=== PATIENT | male | born 2000 | race Caucasian/White ===

== ENCOUNTER 2024-04-10 19:46 | Emergency (ER) | payer SELFPAY ==
[~2024-04-10] VITALS: Ht 165.1 cm; Wt 52.2 kg
[2024-04-10 20:03] VITALS: BP 131/102; PULSE 128; RESP 20; TEMP 98.7; O2SAT 99
[2024-04-10 20:37] LABS: BASOPHILS % (AUTO) 0.2 % (0.0-2.0); HEMATOCRIT 48.1 % (36-52); HEMOGLOBIN 17.1 g/dL (12.0-18.0); LYMPHOCYTES # (AUTO) 0.7 K/uL (2.0-11.5); LYMPHOCYTES % (AUTO) 4.5 % (20.5-51.1); MEAN CORPUSCULAR HEMOGLOBIN 31 pg (27-31); MEAN CORPUSCULAR HGB CONC 36 g/dL (33-37); MEAN CORPUSCULAR VOLUME 85.8 fL (80-94); MONOCYTES # (AUTO) 0.4 K/uL (0.8-1.0); MONOCYTES % (AUTO) 2.7 % (1.7-9.3); NEUTROPHILS # (AUTO) 14.6 K/uL (1.8-7.7); NEUTROPHILS % (AUTO) 92.6 % (42.2-75.2); PLATELET COUNT (AUTO) 401 K/uL (140-450); RED BLOOD CELL COUNT(AUTO) 5.61 MIL/uL (4.20-6.10); RED CELL DISTRIBUTION WIDTH 13.4 % (11.6-13.7); WHITE BLOOD COUNT (AUTO) 15.8 K/uL (4.8-10.8)
[2024-04-10 20:52] LABS: ANION GAP 23.2 (8-16); CALCIUM 10.1 mg/dL (8.5-10.1); POTASSIUM 3.2 mmol/L (3.5-5.1)
[2024-04-10 20:59] LABS: ALBUMIN 5.1 g/dL (3.4-5.0); BILIRUBIN,DIRECT 0.5 mg/dL (0.0-0.3); TOTAL BILIRUBIN 2.1 mg/dL (0.0-1.0); TOTAL PROTEIN, SERUM 9.3 g/dL (6.4-8.2)
[2024-04-10] MEDS: diphenhydrAMINE 50 MG/ML VIAL IVP ONE (21:00)
[2024-04-10] MEDS: METOCLOPRAMIDE 10 MG/2 ML INJ VIAL IVP ONE (21:01)
[2024-04-10] MEDS: KETOROLAC 30 MG/ML VIAL IVP ONE (21:02)
[2024-04-10] MEDS: NACL 0.9% 1,000 ML IV SCH (21:30)
[2024-04-10] MEDS: NACL 0.9% 1,000 ML IV ONE (21:55)
[2024-04-11] MEDS ORDERED: ONDA-188 SL (00:08)
[2024-04-11] MEDS ORDERED: FAMO-90 PO (00:08)
[2024-04-11 00:20] VITALS: BP 142/89; PULSE 100; RESP 18; TEMP 98; O2SAT 100
[2024-04-11 00:41] LABS: APPEARANCE,URINE CLEAR (CLEAR); BILIRUBIN,URINE NEGATIVE (NEGATIVE); BLOOD, URINE NEGATIVE (NEGATIVE); COLOR,URINE YELLOW (YELLOW); LEUKOCYTE ESTERASE ,URINE NEGATIVE (NEGATIVE); NITRITE, URINE NEGATIVE (NEGATIVE); PH,URINE 6.5 (5.0-9.0); PROTEIN,URINE NEGATIVE (NEGATIVE); UGLUCOSE NEGATIVE (NEGATIVE)
[2024-04-11 00:59] LABS: AMPHETAMINE, URINE NEGATIVE ng/ml (NEG <=1000); BARBITURATE, URINE NEGATIVE ng/ml (NEG <=200); BENZODIAZEPINE, URINE NEGATIVE ng/mL (NEG <=200); CANNABINOID, URINE NEGATIVE ng/mL (NEG <=50); COCAINE, URINE NEGATIVE ng/mL (NEG <=300); OPIATE, URINE NEGATIVE ng/mL (NEG <=2000); PHENCYCLIDINE SCREEN,URINE NEGATIVE ng/mL (NEG <=25)
== END 2024-04-11 00:20 | disposition home or self-care (01) ==
LOC: MED 19:46
DX: K29.70 Gastritis, unspecified, without bleeding (principal); F12.90 Cannabis use, unspecified, uncomplicated
CPT/HCPCS: 36415; 80048; 80076; 80305; 81003; 83690; 85025; 93005; 96361; 96374; 96375; 99284; J1200; J1885; J2765; J7030

== ENCOUNTER 2024-05-15 18:49 | Emergency (ER) | payer SELFPAY ==
[~2024-05-15] VITALS: Ht 167.6 cm; Wt 45.0 kg
[~2024-05-15 18:49] MED LIST: FAMO-90 PO; ONDA-188 SL
[2024-05-15 19:01] VITALS: BP 147/73; PULSE 115; RESP 17; TEMP 98.6; O2SAT 100
[2024-05-15 19:28] LABS: BASOPHILS # (AUTO) 0.1 K/uL (0.00-0.22); BASOPHILS % (AUTO) 0.4 % (0.0-2.0); HEMATOCRIT 45.8 % (36-52); HEMOGLOBIN 15.8 g/dL (12.0-18.0); LYMPHOCYTES # (AUTO) 0.8 K/uL (2.0-11.5); LYMPHOCYTES % (AUTO) 3.6 % (20.5-51.1); MEAN CORPUSCULAR HEMOGLOBIN 30 pg (27-31); MEAN CORPUSCULAR HGB CONC 34 g/dL (33-37); MEAN CORPUSCULAR VOLUME 87.3 fL (80-94); MONOCYTES # (AUTO) 0.6 K/uL (0.8-1.0); MONOCYTES % (AUTO) 2.6 % (1.7-9.3); NEUTROPHILS # (AUTO) 20.3 K/uL (1.8-7.7); NEUTROPHILS % (AUTO) 93.4 % (42.2-75.2); PLATELET COUNT (AUTO) 390 K/uL (140-450); RED BLOOD CELL COUNT(AUTO) 5.24 MIL/uL (4.20-6.10); WHITE BLOOD COUNT (AUTO) 21.7 K/uL (4.8-10.8)
[2024-05-15] MEDS: NACL 0.9% 1,000 ML IV ONE ×2 (19:29→20:04)
[2024-05-15] MEDS: KETOROLAC 30 MG/ML VIAL IVP ONE (19:34)
[2024-05-15] MEDS: HALOPERIDOL IM 5 MG/ML VIAL IM ONE (19:34)
[2024-05-15] MEDS: diphenhydrAMINE 50 MG/ML VIAL IVP ONE (19:34)
[2024-05-15 19:48] LABS: APPEARANCE,URINE CLEAR (CLEAR); BILIRUBIN,URINE NEGATIVE (NEGATIVE); BLOOD, URINE NEGATIVE (NEGATIVE); COLOR,URINE YELLOW (YELLOW); LEUKOCYTE ESTERASE ,URINE NEGATIVE (NEGATIVE); NITRITE, URINE NEGATIVE (NEGATIVE); PH,URINE 8.5 (5.0-9.0); PROTEIN,URINE 1+ (NEGATIVE); UGLUCOSE NEGATIVE (NEGATIVE)
--- NOTE | 2024-05-15 19:53 | NUR ---
PATIENT PRESENTS TO ED WITH NAUSEA AND VOMITING, EPIGASTRIC ABD PAIN . PT STATES HE HAS BEEN THROWING UP SINCE THIS MORNING . SKIN IS PINK/WARM/DRY; AAOX4 WITH EVEN AND STEADY GAIT; LUNGS CLEAR BL; HR EVEN AND REGULAR; PT DENIES ANY FEVER, CP, SOB, OR COUGH AT THIS TIME; PATIENT STATES PAIN OF 8/10 AT THIS TIME; VSS; PATIENT POSITIONED FOR COMFORT; HOB ELEVATED; BEDRAILS UP X2; BED DOWN. ER MD MADE AWARE OF PT STATUS. PMH- DENIES NKA
--- NOTE | 2024-05-15 19:55 | NUR ---
193 PT MEDICATED PER ERMD ORDER, PT TOLERATED WELL.
[2024-05-15 19:57] LABS: AMPHETAMINE, URINE NEGATIVE ng/ml (NEG <=1000); BARBITURATE, URINE NEGATIVE ng/ml (NEG <=200); BENZODIAZEPINE, URINE NEGATIVE ng/mL (NEG <=200); CANNABINOID, URINE NEGATIVE ng/mL (NEG <=50); COCAINE, URINE NEGATIVE ng/mL (NEG <=300)
[2024-05-15 19:58] LABS: OPIATE, URINE NEGATIVE ng/mL (NEG <=2000); PHENCYCLIDINE SCREEN,URINE NEGATIVE ng/mL (NEG <=25)
[2024-05-15 20:07] LABS: ALANINE AMINOTRANSFERASE 20 U/L (12-78); ALBUMIN 5.2 g/dL (3.4-5.0); ALCOHOL, BLOOD < 3 mg/dL (<10); ALKALINE PHOSPHATASE 94 U/L (50-136); ANION GAP 24.2 (8-16); ASPARTATE AMINOTRANSFERASE 20 U/L (15-37); CALCIUM 10.6 mg/dL (8.5-10.1); CARBON DIOXIDE 19.6 mmol/L (21-32); CHLORIDE 97 mmol/L (98-107); CREATININE 1.1 mg/dL (0.6-1.3); GFR ARICAN-AMERICAN 108 mL/min (>90); GFR NON ARICAN-AMERICAN 89 mL/min (>90); GLUCOSE 128 mg/dL (74-106); LIPASE 18 U/L (16-77); POTASSIUM 3.8 mmol/L (3.5-5.1); SODIUM SERUM 137 mmol/L (136-145); TOTAL BILIRUBIN 1.5 mg/dL (0.0-1.0); TOTAL PROTEIN, SERUM 9.4 g/dL (6.4-8.2); UREA NITROGEN, BLOOD 8 mg/dL (7-18)
[2024-05-15 20:09] LABS: RBC,URINE 0-5 /HPF (0-5)
[2024-05-15 20:10] LABS: BACTERIA,URINE 3+ /HPF (None Seen); SQUAMOUS EPITHELIAL CELL,UR 4-10 (MOD) /LPF (0-3 (FEW)); WBC,URINE 0-5 /HPF (0-5)
[2024-05-15 20:11] LABS: MUCUS,URINE 3+ /LPF (None Seen)
--- NOTE | 2024-05-15 20:42 | NUR ---
PT BEING TAKEN TO CT.
[2024-05-15] MEDS: ACETAMINOPHEN EXTRA STRENGTH 500 MG TAB PO ONE (21:18)
[2024-05-15] MEDS: ALUMINUM HYD/MAG/SIMETHICONE 30 ML UDC PO ONE (21:18)
[2024-05-15 21:59] VITALS: TEMP 97.8
[2024-05-15] MEDS ORDERED: OMEP20EC11 PO (22:18)
[2024-05-15] MEDS ORDERED: ONDA-188 PO (22:18)
[2024-05-15] MEDS ORDERED: MAG355OR2 PO (22:18)
[2024-05-15] MEDS ORDERED: AMOX1TAB8 PO (22:21)
[2024-05-15 22:45] VITALS: BP 124/78; PULSE 106; RESP 18; O2SAT 98
--- NOTE | 2024-05-15 22:45 | NUR ---
Patient discharged. Written and verbal after care instructions given and explained. Patient alert, oriented and verbalized understanding of instructions. Ambulatory with steady gait. All questions addressed prior to discharge. ID band removed. Patient advised to follow up with PMD. Rx of Maalox, Prilosec and Zofran given. Patient educated on indication of medication including possible reaction and side effects. Opportunity to ask questions provided and answered.
== END 2024-05-15 22:45 | disposition home or self-care (01) ==
LOC: MED 18:49
DX: N39.0 Urinary tract infection, site not specified (principal); R11.2 Nausea with vomiting, unspecified; D72.829 Elevated white blood cell count, unspecified; E83.52 Hypercalcemia; Z79.899 Other long term (current) drug therapy
CPT/HCPCS: 36415; 71045; 74177; 80053; 80305; 81001; 83690; 85025; 96361; 96372; 96374; 96375; 99285; G0482; J1200; J1630; J1885; J7030; Q0092; Q9967

== ENCOUNTER 2024-05-24 11:10 | Emergency (ER) | payer SELFPAY ==
[~2024-05-24] VITALS: Ht 167.6 cm; Wt 45.0 kg
[~2024-05-24 11:10] MED LIST changes: +AMOX1TAB8 PO; +MAG355OR2 PO; +OMEP20EC11 PO; +ONDA-188 PO
[2024-05-24 11:26] VITALS: BP 129/89; PULSE 109; RESP 19; TEMP 98; O2SAT 97
--- NOTE | 2024-05-24 11:55 | NUR ---
PATIENT PRESENTS TO ED WITH ABD PAIN & VOMITING . PT STATES HE KEEPS HAVING ABD PAIN WITH VOMITING AND THIS IS HIS 6TH TIME COMING FOR THE SAME THING . ENDORSES N/V/; SKIN IS PINK/WARM/DRY; AAOX4 WITH EVEN AND STEADY GAIT; LUNGS CLEAR BL; HR EVEN AND REGULAR; PT DENIES ANY FEVER, CP, SOB, OR COUGH AT THIS TIME; PATIENT STATES PAIN OF 9/10 AT THIS TIME; VSS; PATIENT POSITIONED FOR COMFORT; HOB ELEVATED; BEDRAILS UP X2; BED DOWN. ER MD MADE AWARE OF PT STATUS.
--- NOTE | 2024-05-24 12:30 | NUR ---
MEDICATED PER ORDER, ALL MEDS GIVEN
[2024-05-24] MEDS: ONDANSETRON 4 MG/2 ML VIAL IVP ONE (12:53)
[2024-05-24 12:54] LABS: BASOPHILS % (AUTO) 0.4 % (0.0-2.0); EOSINOPHILS % (AUTO) 0.1 % (0.0-4.0); HEMATOCRIT 45.3 % (36-52); HEMOGLOBIN 16.1 g/dL (12.0-18.0); LYMPHOCYTES # (AUTO) 1.8 K/uL (2.0-11.5); MEAN CORPUSCULAR HEMOGLOBIN 31 pg (27-31); MEAN CORPUSCULAR HGB CONC 36 g/dL (33-37); MEAN CORPUSCULAR VOLUME 85.9 fL (80-94); MONOCYTES # (AUTO) 1.1 K/uL (0.8-1.0); NEUTROPHILS # (AUTO) 8.2 K/uL (1.8-7.7); NEUTROPHILS % (AUTO) 73.5 % (42.2-75.2); PLATELET COUNT (AUTO) 405 K/uL (140-450); RED BLOOD CELL COUNT(AUTO) 5.27 MIL/uL (4.20-6.10); RED CELL DISTRIBUTION WIDTH 13.2 % (11.6-13.7); WHITE BLOOD COUNT (AUTO) 11.2 K/uL (4.8-10.8)
[2024-05-24] MEDS: NACL 0.9% 1,000 ML IV ONE (12:54)
[2024-05-24 13:03] LABS: APPEARANCE,URINE CLEAR (CLEAR); BILIRUBIN,URINE 1+ (NEGATIVE); BLOOD, URINE NEGATIVE (NEGATIVE); COLOR,URINE YELLOW (YELLOW); LEUKOCYTE ESTERASE ,URINE NEGATIVE (NEGATIVE); NITRITE, URINE NEGATIVE (NEGATIVE); PROTEIN,URINE 2+ (NEGATIVE); UGLUCOSE NEGATIVE (NEGATIVE); UROBILINOGEN,URINE 0.2 EU/dL (0.2 - 1)
[2024-05-24 13:15] LABS: ANION GAP 18.1 (8-16); CALCIUM 10.4 mg/dL (8.5-10.1); CARBON DIOXIDE 22.3 mmol/L (21-32); CREATININE 0.8 mg/dL (0.6-1.3); POTASSIUM 3.4 mmol/L (3.5-5.1)
[2024-05-24] MEDS: KETOROLAC 30 MG/ML VIAL IVP ONE (13:40)
[2024-05-24 14:05] LABS: ICTOTEST NEGATIVE (NEGATIVE)
[2024-05-24 14:06] LABS: AMPHETAMINE, URINE NEGATIVE ng/ml (NEG <=1000); BACTERIA,URINE OCCASSIONAL /HPF (None Seen); BARBITURATE, URINE NEGATIVE ng/ml (NEG <=200); BENZODIAZEPINE, URINE NEGATIVE ng/mL (NEG <=200); CANNABINOID, URINE NEGATIVE ng/mL (NEG <=50); COCAINE, URINE NEGATIVE ng/mL (NEG <=300); OPIATE, URINE NEGATIVE ng/mL (NEG <=2000); PHENCYCLIDINE SCREEN,URINE NEGATIVE ng/mL (NEG <=25); RBC,URINE 0-5 /HPF (0-5); SQUAMOUS EPITHELIAL CELL,UR 4-10 (MOD) /LPF (0-3 (FEW)); WBC,URINE 0-5 /HPF (0-5)
[2024-05-24] MEDS ORDERED: ONDA-188 SL (14:32)
[2024-05-24 14:47] VITALS: BP 127/79; PULSE 112; RESP 15; TEMP 97; O2SAT 98
== END 2024-05-24 14:47 | disposition home or self-care (01) ==
LOC: MED 11:10
DX: E86.0 Dehydration (principal); F12.90 Cannabis use, unspecified, uncomplicated; Z79.899 Other long term (current) drug therapy
CPT/HCPCS: 36415; 80048; 80305; 81001; 85025; 96361; 96374; 96375; 99284; J1885; J2405; J7030